=== PATIENT | male | born 1955 | race Caucasian/White ===

== ENCOUNTER 2016-11-09 16:17 | Emergency (ER) | payer BC, OTHER ==
[2016-11-09 16:33] VITALS: BP 144/96
--- NOTE | 2016-11-09 17:24 | RAD ---
Indication: Left medial knee pain. 4 views of left knee demonstrates no fracture. No other bone or joint abnormality is identified. No joint effusion is identified. IMPRESSION: Unremarkable left knee.
--- NOTE | 2016-11-09 17:34 | UC ---
Knee Pain HPI - HPI Summary HPI Summary: twisted left knee on ice 10/31/16 has point tenderness medial lateral knee-is stiff when he gets up no calf pain or tenderness - History of Current Complaint Chief Complaint: UCLowerExtremity Stated Complaint: KNEE INJURY Time Seen by Provider: 11/09/16 16:44 Hx Obtained From: Patient Onset/Duration: Sudden Onset, Lasting Days, Still Present Severity Initially: Moderate Severity Currently: Mild Location Of Injury: medial left knee Pain Intensity: 3 Pain Scale Used: 0-10 Numeric Character: Aching Aggravating Factor(s): Movement Alleviating Factor(s): Rest Associated Signs And Symptoms: Positive: Negative Able to Bear Weight: Yes - Allergies/Home Medications Allergies/Adverse Reactions: Allergies Allergy/AdvReac Type Severity Reaction Status Date / Time No Known Allergies Allergy Verified 11/09/16 16:33 PMH/Surg Hx/FS Hx/Imm Hx Previously Healthy: No Cardiovascular History Of: Reports: Hypertension - Surgical History Surgical History: Yes Surgery Procedure, Year, and Place: RIGHT ROTATOR CUFF SURGERY 2009 - Family History Family History: denies cardiovascular issues in family lineage - Social History Occupation: Employed Part-time Lives: With Family Alcohol Use: Occasionally Substance Use Type: None Smoking Status (MU): Never Smoked Tobacco Review of Systems Constitutional: Negative Skin: Negative Eyes: Negative ENT: Negative Respiratory: Negative Cardiovascular: Palpitations Gastrointestinal: Negative Genitourinary: Negative Motor: Negative Neurovascular: Negative Musculoskeletal: Negative, Arthralgia - left knee Neurological: Negative Psychological: Negative All Other Systems Reviewed And Are Negative: Yes Physical Exam Triage Information Reviewed: Yes Appearance: Well-Appearing, No Pain Distress, Obese Vital Signs: Initial Vital Signs Temp 97.2 F 11/09/16 16:30 Pulse 63 11/09/16 16:30 Resp 18 11/09/16 16:30 BP 144/96 11/09/16 16:30 Pulse Ox 97 11/09/16 16:30 Vital Signs Reviewed: Yes Eye Exam: Normal Eyes: Positive: Conjunctiva Clear ENT Exam: Normal ENT: Positive: Normal ENT inspection, Hearing grossly normal, Pharynx normal. Negative: Nasal congestion, Nasal drainage, Trismus, Muffled/hoarse voice Neck exam: Normal Neck: Positive: Supple, Nontender Respiratory Exam: Normal Respiratory: Positive: No respiratory distress, No accessory muscle use Cardiovascular Exam: Normal Cardiovascular: Positive: RRR, Pulses Normal, Brisk Capillary Refill Musculoskeletal Exam: Normal Musculoskeletal: Positive: Strength Intact, ROM Intact, No Edema Neurological Exam: Normal Neurological: Positive: Alert, Muscle Tone Normal Psychological Exam: Normal Psychological: Positive: Normal Response To Family Skin Exam: Normal Diagnostics - Radiology No standard instances Xray Interpretation: No Acute Changes Radiology Interpretation Completed By: ED Physician, Radiologist Knee Pain Course/Dx - Course Course Of Treatment: cosme, nsaids, rice follow with ortho - Differential Dx/Diagnosis Differential Diagnosis/HQI/PQRI: Fracture (Closed), Internal Derangement Of Knee , Sprain, Strain Provider Diagnoses: Left knee strain Discharge - Discharge Plan Condition: Stable Disposition: HOME Prescriptions: Ibuprofen TAB* [Motrin TAB* 600 MG] 600 mg PO Q6H PRN #30 tab PRN Reason: pain Patient Education Materials: Knee Sprain (ED), Knee Pain (ED), RICE Therapy (ED ) Referrals: Sky Jacinto MD [Medical Doctor] - Narayan Bruner MD [Primary Care Provider] -
== END 2016-11-09 17:46 | disposition home or self-care (01) ==
LOC: UCEAST 16:17
DX: S86.912A Strain of unspecified muscle(s) and tendon(s) at lower leg level, left leg, initial encounter (principal); X50.1XXA Overexertion from prolonged static or awkward postures, initial encounter; Y93.9 Activity, unspecified; Y92.9 Unspecified place or not applicable
CPT/HCPCS: 99212; G0463

== ENCOUNTER → 2017-11-10 05:57 | Day surgery (SDC) | payer BC, OTHER ==
[~2017-11-10 05:57] MED LIST: Atracurium* 10 MG/ML 10 ML VIAL ONE; Buffered Lidocaine 0.9% SYRIN* 5 ML/SYR SYRINGE INTRADERM ONE; Dexamethasone IV* 4 MG/ML 1 ML (4 MG) ONE; DiMENhydriNATE IV* 50 MG/ML VIAL IV PUSH PRN; DiMENhydriNATE IV* 50 MG/ML VIAL ONE; EPINEPHRINE 1 MG/ML 1 ML VIAL ONE; Famotidine IV* 10 MG/ML 2 ML (20 mg) IV ONE; Famotidine IV* 10 MG/ML 2 ML (20 mg) ONE; Glycopyrrolate IV* 0.2 MG/ML 1 ML VIAL ONE; HYDROmorphone INJ* 1 MG/ML CARPUJECT SYRINGE IV PRN; Ketorolac INJ* 30 MG/ML 1 ML VIAL ONE; Midazolam* 1 MG/ML 10 ML VIAL (10 MG) ONE; Naloxone* 0.4 MG/ML 1 ML VIAL IV PRN; Ondansetron INJ* 2 MG/ML VIAL IV PRN; Ondansetron INJ* 2 MG/ML VIAL ONE; Phenylephrine INJ* 10 MG/ML 1 ML VIAL (10 MG) ONE; Propofol* 10 MG/ML 20 ML BTL IV PUSH ONE; ROPIVACAINE 5 MG/ML 30 ML BTL (0.5%) ONE; ceFAZolin 2 GM PREMIX (*) 2 GM/50 ML BAG IVPB ONE; fentaNYL* 50 MCG/ML 2 ML VIAL (100 MCG VIAL) IV PRN; fentaNYL* 50 MCG/ML 2 ML VIAL (100 MCG VIAL) ONE; oxyCODONE/Acetamin 5/325 MG* TAB PO PRN
[2017-11-10] MEDS: Dexamethasone IV* 4 MG/ML 1 ML (4 MG) IV SLOW PU ONE ×2 (06:46→06:47)
[2017-11-10 13:51] VITALS: BP 118/73
--- NOTE | 2017-11-16 02:57 | OP ---
DATE OF OPERATION: 11/10/17 - [facility] DATE OF : 55 SURGEON: Michael Moss MD LEAD MILITARY ANALYST: GENIA Jara. A physician printer assistant was required for the length of the procedure for positioning, assistance with instrumentation, closure. ANESTHESIOLOGIST: Dr. Camden Gunn. ANESTHESIA: General anesthesia, interscalene block regional anesthesia. PRE-OP DIAGNOSES: 1. Right shoulder recurrent rotator cuff tendon tear, supraspinatus. 2. Possible right shoulder subscapularis and/or infraspinatus rotator cuff tendon tears. 3. Right shoulder AC joint arthritis. 4. Right shoulder subacromial impingement. 5. Possible right shoulder biceps tendinosis. POST-OP DIAGNOSES: 1. Right shoulder recurrent rotator cuff tendon tear, supraspinatus. 2. Right shoulder subscapularis and infraspinatus rotator cuff tendon tears. 3. Right shoulder supraspinatus and infraspinatus tears had an L-shape. 4. Right shoulder AC joint arthritis. 5. Right shoulder subacromial impingement. 6. Prior spontaneous rupture, right shoulder biceps tendon, long head, proximal , with a long persistent biceps stump proximally. OPERATIVE PROCEDURE: 1. Right shoulder arthroscopic subscapularis rotator cuff tendon repair. 2. Right shoulder arthroscopic rotator cuff repairs, supraspinatus, infraspinatus, L-shaped, with double row repair. 3. Right shoulder arthroscopic distal clavicle resection. 4. Right shoulder arthroscopic subacromial decompression. 5. Right shoulder arthroscopic limited debridement including of proximal biceps long head stump, rotator interval tissue as well. 6. Modifier 22 for complexity of procedure. This patient has a BMI of 40.2. This was a revision surgery of a prior rotator cuff repair done in 2009. It was a massive rotator cuff repair, including repair of the subscapularis, supraspinatus, and infraspinatus with 4 anchors as well as 2 [id number] stitches. ANTIBIOTICS: Ancef 2 g IV. IV FLUIDS: 1800 cc crystalloid. COMPLICATIONS: None. SPECIMENS: None. ESTIMATED BLOOD LOSS: Minimal. IMPLANTS: Mitek Colby and Colby Gryphon anchors. A 4.5-mm double loaded anchor for the subscapularis. Two anchors, 5.5-mm and triple loaded for the medial row of the supra and infraspinatus repair. A 5.5-mm knotless anchor for the lateral row. Two Orthocord #2 sutures for 2 [id number] stitches. 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 Sun in 2009, who injured himself in March of 2017. I diagnosed him with a rotator cuff tear. He opted not to have surgery immediately. He then injured himself again in July 2017 and now is interested in surgery. See history and physical for full details. MRI showed acromiohumeral distance as high as 7 mm. MRI showed fatty infiltration of the supraspinatus of approximately 50%. Significant fatty infiltration of the subscapularis, practically complete. While radiologist did not note a tear in the subscapularis, I thought there was at least partial- thickness tearing in it. As well as I believe that the tear propagated into the infraspinatus. I did not see biceps tendon in multiple axial slices preoperative, so I was not surprised by the rupture found intraoperatively. The patient and I preoperatively discussed risks and potential complications of surgery including bleeding, infection, nerve or blood vessel injury, blood clot , shoulder pain, stiffness, osteoarthritis, inability to repair rotator cuff, rotator cuff rerupture. DESCRIPTION OF PROCEDURE: Preoperatively, the patient signed a written consent. Operative extremity was marked in preoperative holding. The patient underwent an interscalene regional nerve block by Dr. Gunn. The patient went back to the operating room and placed supine on the operating room table. The patient was sedated and intubated. The patient was transitioned into the lateral decubitus position with the right shoulder up. All bony prominences padded. Axillary role placed. Vega bag hardened. Shoulder placed in longitudinal traction, in the appropriate amount of forward flexion and abduction of that right shoulder. Right shoulder had been shaved previously of hair. Prepped with ChloraPrep and draped. Surgical time-out performed. The right glenohumeral joint was entered from posterior with a spinal needle and 30 cc of normal saline were infused. I then established a posterior glenohumeral joint portal using standard technique. A diagnostic arthroscopy was commenced. No loose bodies in the axillary recess. Large superior rotator tuff tear with retraction clearly visible as the subacromial space was very visible. I looked to the subscapularis. It was partially if not completely pulled off the proximal humerus with some retraction. At this point, I decided I would be doing a subscapularis repair, arthroscopic. I made an anterosuperior rotator cuff portal under direct visualization. First I inspected the biceps tendon which I should state earlier, on my diagnostic arthroscopy, was shown to be ruptured. There was a long stump of biceps attached to the superior labrum. Using an arthroscopic shaver, I debrided that stump back to the superior labrum and debrided likely some frayed superior labral tissue. I freed up the subscapularis. I did so using arthroscopic shaver and switching stick to loosen it up from adhesions. With the grasper, I was able to demonstrate to myself that it was repairable to bone. I debrided the subscapularis rotator cuff footprint with an arthroscopic bur. I established an anteroinferior arthroscopic glenohumeral joint portal. Prior to doing so, I had placed a 7-mm Arthrex plastic cannula into the anterosuperior portal. After creating the anteroinferior portal, I next placed a suture anchor through this row of portal. Specifically, a double loaded 4.5 mm Mitek Gryphon anchor. Sutures were removed through the anterosuperior portal. I used an ideal suture passer from Mitek to place 2 horizontal mattress stitches in the subscapularis tendon. I tied this down and the subscapularis tendon was brought nicely to bone. I probed my repair on both the humerus and I liked my repair. I had also done some debridement of the rotator interval, of course, prior to doing that repair. I next removed my portals and replaced them into the subacromial space. I entered from posterior and anterior. There was some momentary difficulty getting in anterior because of the coracoacromial ligament, but eventually established posterior and anterior subacromial portals. I created lateral subacromial portal under direct visualization. A large rotator cuff tear was clearly noticeable. I debrided bursitic tissue in the gutters with an arthroscopic shaver. I debrided the undersurface of the acromion with a vapor electrocautery. I established posterolateral subacromial portal for improved visualization. I probed and grasped the repair to try to define its anatomy. Two sutures were visible in the supraspinatus, present far medial. I explored the tear and found it to be L-shaped. The vertical limb of the L was present close to the anterior most supraspinatus. The transverse limb then moved posterior along the footprint. There was a tiny slither of a good quality supraspinatus tissue still intact most anteriorly. After defining the tear geometry, I moved forward to my repair. I placed 2 suture anchors in the medial aspect of the rotator cuff footprint after preparing that footprint with a vapor and arthroscopic bur. Each anchor was 5.5 -mm and triple loaded. One was more anterior and one was more posterior. I placed both anchors through superolateral stab incisions. I next placed horizontal mattress stitches in the supraspinatus and infraspinatus using a Arriaga and [employer] suture passer. I partially tied as I went. I liked how the rotator cuff came to bone nicely and was confident that I defined well the L- shaped configuration of this tear. I placed 3 stitches with my anterior anchor and 3 stitches with my posterior anchor. Given the size of the tear, I have decided to place a lateral row anchor. I took 4 sutures from the medical row and placed them in a knotless 5.5-mm suture anchor laterally. Care was very stable to arthroscopic probing and to movement of the humerus. There was still the longitudinal or vertical rim of the L which I wanted to close down even though the supraspinatus on either side of that rim was well opposed. I placed 2 [id number]-jh-[id number] stitches using a Copybar Jasper suture passer. Repair seemed robust. There was clearly an inferior hook to the anterior aspect of the acromion. I normally do the arthroscopic decompression prior to my rotator cuff repair, but I did it after the repair in this case. I debrided approximately 8-mm or more of this hook and smoothed it out nicely. I next proceeded to the AC joint. There was significant synovitic, bursitic tissue about that joint, which I debrided with a vapor. I then debrided 8-mm at the end of the distal clavicle using arthroscopic bur. Fluid and instruments were removed from the shoulder. Skin incisions were closed with [id number] and twelve stitches using nylon 4.0 suture. Xeroform, 4x4, ABDs, foam tape. Sling and abduction pillow. The patient was extubated and awakened and brought to the PACU. DISPOSITION: The patient was to start physical therapy the following week. The patient was prescribed Percocet as needed for pain control, Keflex x7 days for infection prophylaxis and aspirin for DVT prophylaxis. The patient will follow up with me in clinic in 10 to 14 days. [id number]/CPS #: [id number] MTDD
== END | disposition home or self-care (01) ==
LOC: OR 05:57
PROVIDERS: ATTEND Orthopaedic Surgery
DX: S46.011A Strain of muscle(s) and tendon(s) of the rotator cuff of right shoulder, initial encounter (principal); M19.011 Primary osteoarthritis, right shoulder; M75.41 Impingement syndrome of right shoulder; M66.811 Spontaneous rupture of other tendons, right shoulder; I10 Essential (primary) hypertension; K21.9 Gastro-esophageal reflux disease without esophagitis; E78.00 Pure hypercholesterolemia, unspecified; W17.2XXA Fall into hole, initial encounter; Y93.01 Activity, walking, marching and hiking; Y92.828 Other wilderness area as the place of occurrence of the external cause; G89.18 Other acute postprocedural pain
CPT/HCPCS: J0690; J1100; J1240; J1885; J2250; J2405; J2704; J2795; J3010

== ENCOUNTER 2019-10-23 13:31 | Emergency (ER) | payer BC, OTHER ==
[2019-10-23 13:53] LABS: ABS Basophils 0.1 10^3/ul (0-0.2); ABS Eosinophils 0.1 10^3/ul (0-0.6); ABS Lymphocytes 1.4 10^3/ul (1.0-4.8); ABS Monocytes 0.5 10^3/ul (0-0.8); ABS Neutrophils 3.1 10^3/ul (1.5-7.7); Eosinophil % 1.3 %; Hematocrit 47 % (42-52); Hemoglobin 15.9 g/dL (14.0-18.0); Lymphocyte % 26.6 %; Mean Corpuscular HGB Conc 34 g/dL (31-36); Mean Corpuscular Hemoglobin 31 pg (27-31); Mean Corpuscular Volume 92 fL (80-94); Mean Platelet Volume 9.5 fL (7.4-10.4); Nucleated Red Blood Cells % 0.1; Platelet Count 182 10^3/uL (150-450); Red Blood Count 5.08 10^6 /uL (4.18-5.48); Red Cell Distribution Width 14 % (10-15); White Blood Count 5.2 10^3/uL (3.5-10.8)
[2019-10-23 13:59] LABS: INR 0.98 (0.82-1.09)
[2019-10-23 14:10] LABS: Albumin 4.1 g/dL (3.2-5.2); Albumin/Globulin Ratio 1.4 (1-3); BUN/Creatinine Ratio 19.1 (8-20); Calcium 9.5 mg/dL (8.6-10.3); EGFR African American 77.5 (>60); Globulin 2.9 g/dL (2-4); Potassium 4.4 mmol/L (3.5-5.0); Total Bilirubin 0.6 mg/dL (0.2-1.0)
[2019-10-23] MEDS ORDERED: Pantoprazole IV* 40 MG IV ONE (14:15)
[2019-10-23] MEDS ORDERED: Sucralfate TAB* 1 GM PO ONE (14:15)
--- NOTE | 2019-10-23 14:16 | ED ---
HPI Chest Pain - HPI Summary HPI Summary: This patient is a 64 year old M presenting to [facility] accompanied by with a chief complaint of chest pain since 0 today. Pt describes it as heaviness on his chest. Pt was fine when he went to sleep. On 10/18/19, pt had a stabbing pain when going to [place] but felt fine the night of the . On 10/19/19 and he felt a heaviness on his chest. Pt felt fine later in the day after driving back to [place]. Pt has PMHx of acid reflux, and his prescription changed to Zantac last year. They had a recall on Zantac so pt stopped taking the prescription. Pt had medication this morning for acid reflux but it did not relieve the pain. Per triage, the patient rates the pain 3/10 in severity. Symptoms aggravated by position (laying down). Symptoms alleviated by eating. Patient reports nausea. Patient denies SOB, diaphoresis. Pt has PMHx of HTN. Pt has no FHx. - History of Current Complaint Chief Complaint: EDChestPainROMI Time Seen by Provider: 10/23/19 13:35 Hx Obtained From: Patient Onset/Duration: Started Hours Ago Time of Onset: 04:00 Timing: Constant Initial Severity: Mild Current Severity: Mild Pain Intensity: 3 Pain Scale Used: 0-10 Numeric Chest Pain Location: Diffuse Chest Pain Radiates: Yes Chest Pain Radiates To:: Epigastric Character: Heaviness Aggravating Factor(s): Position Alleviating Factor(s): Other: - Food Associated Signs and Symptoms: Positive: Chest Pain, Nausea. Negative: Shortness of Breath, Diaphoresis - Allergy/Home Medications Allergies/Adverse Reactions: Allergies Allergy/AdvReac Type Severity Reaction Status Date / Time No Known Allergies Allergy Verified 10/23/19 13:36 PMH/Surg Hx/FS Hx/Imm Hx Endocrine/Hematology History: Denies: Hx Diabetes Cardiovascular History: Reports: Hx Hypertension Denies: Hx Pacemaker/ICD Respiratory History: Reports: Hx Sleep Apnea Denies: Hx Pulmonary Embolism GI History: Reports: Hx Gastroesophageal Reflux Disease - ON MEDICATION FOR History: Denies: Hx Renal Disease Sensory History: Denies: Hx Contacts or Glasses, Hx Hearing Aid Opthamlomology History: Denies: Hx Contacts or Glasses Psychiatric History: Denies: Hx Panic Disorder - Surgical History Surgery Procedure, Year, and Place: RIGHT ROTATOR CUFF SURGERY 2009. UMBILICAL HERNIA AGE 2 Hx Anesthesia Reactions: No Infectious Disease History: No Infectious Disease History: Denies: Traveled Outside the [place] in Last 30 Days - Family History Known Family History: Negative: Cardiac Disease Family History: denies cardiovascular issues in family lineage - Social History Lives: With Family Alcohol Use: Occasionally Hx Substance Use: No Substance Use Type: Reports: None Hx Tobacco Use: No Smoking Status (MU): Never Smoked Tobacco Review of Systems Negative: Skin Diaphoresis Positive: Chest Pain Negative: Shortness Of Breath Positive: Nausea All Other Systems Reviewed And Are Negative: Yes Physical Exam - Summary Physical Exam Summary: Appearance: The patient is well-nourished in no acute distress and in no acute pain. Skin: The skin is warm and dry, and skin color reflects adequate perfusion. HEENT: The head is normocephalic and atraumatic. The pupils are equal and reactive. The conjunctivae are clear and without drainage. Nares are patent and without drainage. Mouth reveals moist mucous membranes, and the throat is without erythema and exudate. The external ears are intact. The ear canals are patent and without drainage. The tympanic membranes are intact. Neck: The neck is supple with full range of motion and non-tender. There are no carotid bruits. There is no neck vein distension. Respiratory: Chest is non-tender. Lungs are clear to auscultation and breath sounds are symmetrical and equal. Cardiovascular: Heart is regular rate and rhythm. There is no murmur or rub auscultated. There is no peripheral edema and pulses are symmetrical and equal. Abdomen: The abdomen is soft. There are normal bowel sounds heard in all four quadrants and there is no organomegaly palpated. Mild epigastric tenderness. Musculoskeletal: There is no back tenderness noted. Extremities are non-tender with full range of motion. There is good capillary refill. There is no peripheral edema or calf tenderness elicited. Neurological: Patient is alert and oriented to person, place and time. The patient has symmetrical motor strength in all four extremities. Cranial nerves are grossly intact. Deep tendon reflexes are symmetrical and equal in all four extremities. Psychiatric: The patient has an appropriate affect and does not exhibit any anxiety or depression. Triage Information Reviewed: Yes Vital Signs On Initial Exam: Initial Vitals Temp Pulse Resp BP Pulse Ox 98.9 F 74 18 143/89 99 10/23/19 13:34 10/23/19 13:34 10/23/19 13:34 10/23/19 13:34 10/23/19 13:34 Vital Signs Reviewed: Yes Procedures - Sedation Patient Received Moderate/Deep Sedation with Procedure: No Diagnostics - Vital Signs Vital Signs Temp Pulse Resp BP Pulse Ox 10/23/19 13:34 98.9 F 74 18 143/89 99 - Laboratory Lab Results: Lab Results 10/23/19 10/23/19 10/23/19 Range/Units 13:47 13:47 13:47 WBC 5.2 (3.5-10.8) 10^3/uL RBC 5.08 (4.18-5.48) 10^6 /uL Hgb 15.9 (14.0-18.0) g/dL Hct 47 (42-52) % MCV 92 (80-94) fL MCH 31 (27-31) pg MCHC 34 (31-36) g/dL RDW 14 (10-15) % Plt Count 182 (150-450) 10^3/uL MPV 9.5 (7.4-10.4) fL Neut % (Auto) 60.5 % Lymph % (Auto) 26.6 % [place] % (Auto) 10.5 % Eos % (Auto) 1.3 % Baso % (Auto) 1.1 % Absolute Neuts (auto) 3.1 (1.5-7.7) 10^3/ul Absolute Lymphs (auto) 1.4 (1.0-4.8) 10^3/ul Absolute Monos (auto) 0.5 (0-0.8) 10^3/ul Absolute Eos (auto) 0.1 (0-0.6) 10^3/ul Absolute Basos (auto) 0.1 (0-0.2) 10^3/ul Absolute Nucleated RBC 0.0 10^3/ul Nucleated RBC % 0.1 INR (Anticoag Therapy) 0.98 (0.82-1.09) Sodium 140 (135-145) mmol/L Potassium 4.4 (3.5-5.0) mmol/L Chloride 109 (101-111) mmol/L Carbon Dioxide 27 (22-32) mmol/L Anion Gap 4 (2-11) mmol/L BUN 22 (6-24) mg/dL Creatinine 1.15 (0.67-1.17) mg/dL Est GFR ( Amer) 77.5 (>60) Est GFR (Non-Af Amer) 64.0 (>60) BUN/Creatinine Ratio 19.1 (8-20) Glucose 107 H (70-100) mg/dL Calcium 9.5 (8.6-10.3) mg/dL Total Bilirubin 0.60 (0.2-1.0) mg/dL AST 21 (13-39) U/L ALT 20 (7-52) U/L Alkaline Phosphatase 87 (34-104) U/L Troponin I 0.00 (<0.03) ng/mL Total Protein 7.0 (6.4-8.9) g/dL Albumin 4.1 (3.2-5.2) g/dL Globulin 2.9 (2-4) g/dL Albumin/Globulin Ratio 1.4 (1-3) Result Diagrams: 10/23/19 13:47 10/23/19 13:47 Lab Statement: Any lab studies that have been ordered have been reviewed, and results considered in the medical decision making process. - EKG 1335 Cardiac Rate: NL EKG Rhythm: Sinus Rhythm Summary of EKG Findings: EKG at 1335 reveals Normal sinus rhythm 69 bpm, PVC. This EKG was reviewed and interpreted by ED physician Re-Evaluation - Re-Evaluation First Eval Re-Evaluation Time: 15:05 Comment: Discussed results and plan of care with pt. Chest Pain Course/Dx - Course Course Of Treatment: Mr. Bowen presented with some chest discomfort. He has a long history of GERD. On presentation his vitals are stable and he was nontoxic in appearance. His EKG was unchanged from previous. Labs including a delayed troponin were unremarkable. His symptomatology disappeared with IV Protonix and sucralfate. His heart score is 3. This likely represents a GI etiology and much less likely a cardiac etiology. I recommended follow-up with his PCP. - Diagnoses Provider Diagnoses: Chest pain Discharge ED - Sign-Out/Discharge Documenting (check all that apply): Patient Departure - Discharge - Discharge Plan Condition: Stable Disposition: HOME Patient Education Materials: Chest Pain (ED) Referrals: Narayan Bruner MD [Primary Care Provider] - 3 Days Additional Instructions: Follow up with primary care provider within 2-3 days. Return to ED for any new or worsening symptoms. - Billing Disposition and Condition Condition: STABLE Disposition: Home - Attestation Statements Document Initiated by Malena: Yes Documenting Scribe: Laura Haas Provider For Whom Malena is Documenting (Include Credential): Adalid Marie MD Scribe Attestation: Laura Peck, scribed for Adalid Marie MD on 10/23/19 at 1826. Scribe Documentation Reviewed: Yes Provider Attestation: The documentation as recorded by the Laura fountain accurately reflects the service I personally performed and the decisions made by me, Adalid Marie MD Status of Scribe Document: Viewed
[2019-10-23 17:54] VITALS: BP 138/97
== END 2019-10-23 17:54 | disposition home or self-care (01) ==
LOC: ED 13:31
DX: R07.9 Chest pain, unspecified (principal); I10 Essential (primary) hypertension; K21.9 Gastro-esophageal reflux disease without esophagitis; Z79.899 Other long term (current) drug therapy
CPT/HCPCS: 36415; 80053; 83690; 84484; 85025; 85610; 93005; 96374; 99284; A9270-GY

== ENCOUNTER 2021-11-23 13:57 | Observation (INO) ==
[2021-11-23 14:30] LABS: ABS Eosinophils 0.1 10^3/ul (0-0.6); ABS Lymphocytes 1.4 10^3/ul (1.0-4.8); ABS Monocytes 0.5 10^3/ul (0-0.8); ABS Neutrophils 3.4 10^3/ul (1.5-7.7); Eosinophil % 1.2 %; Hematocrit 45 % (42-52); Hemoglobin 15.2 g/dL (14.0-18.0); Lymphocyte % 25.2 %; Mean Corpuscular HGB Conc 34 g/dL (31-36); Mean Corpuscular Hemoglobin 31 pg (27-31); Mean Corpuscular Volume 91 fL (80-94); Mean Platelet Volume 9.6 fL (7.4-10.4); Nucleated Red Blood Cells % 0.1; Platelet Count 189 10^3/uL (150-450); Red Blood Count 4.96 10^6 /uL (4.18-5.48); Red Cell Distribution Width 14 % (10-15); White Blood Count 5.4 10^3/uL (3.5-10.8)
[2021-11-23 14:39] LABS: INR 1.09 (0.86-1.15)
[2021-11-23 14:47] LABS: Albumin 4.1 g/dL (3.2-5.2); Albumin/Globulin Ratio 1.5 (1-3); Calcium 9.2 mg/dL (8.6-10.3); Globulin 2.7 g/dL (2-4); Potassium 4.2 mmol/L (3.5-5.0); Total Bilirubin 0.7 mg/dL (0.2-1.0); Total Protein 6.8 g/dL (6.4-8.9); eGFR CKD-EPI 63.5 (>60)
[2021-11-23 14:49] LABS: Troponin I 0.01 ng/mL (<0.03)
[2021-11-23] MEDS ORDERED: Al Hydrox/Mg Hydrox/Simet LIQ 30 ML UDC PO ONE (15:42)
[2021-11-23 17:46] LABS: Troponin I 0.03 ng/mL (<0.03)
[2021-11-23] MEDS ORDERED: Al Hydrox/Mg Hydrox/Simet LIQ 30 ML UDC PO PRN (20:27)
[2021-11-23 21:07] LABS: Troponin I 0.03 ng/mL (<0.03)
[2021-11-24 03:22] LABS: Hematocrit 43 % (42-52); Hemoglobin 14.7 g/dL (14.0-18.0); Mean Corpuscular HGB Conc 34 g/dL (31-36); Mean Corpuscular Hemoglobin 31 pg (27-31); Mean Corpuscular Volume 91 fL (80-94); Mean Platelet Volume 9.2 fL (7.4-10.4); Platelet Count 169 10^3/uL (150-450); Red Blood Count 4.78 10^6 /uL (4.18-5.48); Red Cell Distribution Width 14 % (10-15)
[2021-11-24 03:39] LABS: Magnesium 2.2 mg/dL (1.9-2.7); Potassium 4.5 mmol/L (3.5-5.0); eGFR CKD-EPI 68.8 (>60)
[2021-11-24] MEDS ORDERED: Albuterol HFA INHALER 8 gm MDI INH PRN (04:51)
[2021-11-24] MEDS ORDERED: Calcium Carb (TUMS) 500 mg CHEW TAB PO PRN (04:51)
[2021-11-24] MEDS ORDERED: Coenzyme Q10 CAP (NF) 100MG PO SCH (09:00)
[2021-11-24 11:08] VITALS: BP 120/80
[2021-11-24] MEDS ORDERED: CMCS: Epleronone 25 mg TAB (NF) PO SCH (21:00)
== END 2021-11-24 16:50 | disposition home or self-care (01) ==
LOC: EDHOLD 13:57 → ED 13:57 → SUATTDRO 20:20 → MED 22:37
PROVIDERS: ADMIT Student in an Organized Health Care Education/Training Program; ATTEND Internal Medicine

== ENCOUNTER 2022-09-18 06:48 | Observation (INO) ==
[2022-09-18 07:12] LABS: ABS Eosinophils 0.1 10^3/ul (0-0.6); ABS Lymphocytes 1.1 10^3/ul (1.0-4.8); ABS Monocytes 0.5 10^3/ul (0-0.8); ABS Neutrophils 2.4 10^3/ul (1.5-7.7); Eosinophil % 2.3 %; Hematocrit 44 % (42-52); Hemoglobin 14.4 g/dL (14.0-18.0); Lymphocyte % 26.9 %; Mean Corpuscular HGB Conc 33 g/dL (31-36); Mean Corpuscular Hemoglobin 31 pg (27-31); Mean Corpuscular Volume 92 fL (80-94); Mean Platelet Volume 9.4 fL (7.4-10.4); Nucleated Red Blood Cells % 0.1; Platelet Count 162 10^3/uL (150-450); Red Blood Count 4.74 10^6 /uL (4.18-5.48); Red Cell Distribution Width 14 % (10-15); White Blood Count 4.2 10^3/uL (3.5-10.8)
[2022-09-18 07:17] LABS: INR 1.02 (0.89-1.11)
[2022-09-18 07:59] LABS: Albumin 4.2 g/dL (3.2-5.2); Albumin/Globulin Ratio 1.8 (1-3); Globulin 2.3 g/dL (2-4); Potassium 4.4 mmol/L (3.5-5.0); Total Bilirubin 1.1 mg/dL (0.2-1.0); Total Protein 6.5 g/dL (6.4-8.9); eGFR CKD-EPI 79.2 (>60)
[2022-09-18 08:42] LABS: Magnesium 2.2 mg/dL (1.9-2.7)
[2022-09-18 08:46] LABS: High Sensitivity Troponin 1 Hr 12 pg/mL (<20)
[2022-09-18] MEDS ORDERED: Ondansetron 4 mg VIAL 2 MG/ML 2 ml VIAL IV PRN (10:16)
[2022-09-18] MEDS ORDERED: Albuterol HFA INHALER 8 gm MDI INH PRN (10:21)
[2022-09-18] MEDS: Enoxaparin 40 MG/0.4 ML SYR SUBCUT SCH (17:22)
[2022-09-18] MEDS ORDERED: CMC:Epleronone 25 mg TAB (NF) PO SCH (21:00)
[2022-09-19 07:30] LABS: ABS Eosinophils 0.1 10^3/ul (0-0.6); ABS Lymphocytes 1.3 10^3/ul (1.0-4.8); ABS Monocytes 0.5 10^3/ul (0-0.8); ABS Neutrophils 2.4 10^3/ul (1.5-7.7); Eosinophil % 3.1 %; Hematocrit 43 % (42-52); Hemoglobin 14.3 g/dL (14.0-18.0); Lymphocyte % 29.1 %; Mean Corpuscular HGB Conc 33 g/dL (31-36); Mean Corpuscular Hemoglobin 30 pg (27-31); Mean Corpuscular Volume 92 fL (80-94); Platelet Count 153 10^3/uL (150-450); Red Cell Distribution Width 14 % (10-15); White Blood Count 4.3 10^3/uL (3.5-10.8)
[2022-09-19 07:42] LABS: Calcium 8.7 mg/dL (8.6-10.3); HDL Cholesterol 40.8 mg/dL; Magnesium 2.2 mg/dL (1.9-2.7); Potassium 4.8 mmol/L (3.5-5.0); eGFR CKD-EPI 70.9 (>60)
[2022-09-19] MEDS ORDERED: Metoprolol Tartrate 5 mg VIAL 5 ml VIAL (1 mg/ml) ONE (07:46)
[2022-09-19] MEDS ORDERED: DOBUTamine 2000 MCG/ML IVPREMX 500 MG/250 ML BAG IV ONE (07:46)
[2022-09-19] MEDS ORDERED: Perflutren Lipid Microsphere 3 ML VIAL ONE (08:03)
[2022-09-19] MEDS ORDERED: Aspirin EC 81 mg TAB.EC (enteric coated) PO SCH (09:00)
[2022-09-19 11:33] VITALS: BP 120/80
[2022-09-19] MEDS: Enoxaparin 40 MG/0.4 ML SYR SUBCUT SCH (12:55)
== END 2022-09-19 13:00 | disposition home or self-care (01) ==
LOC: ED 06:48 → EDHOLD 06:48 → MEDTELE 17:06 → SSU 17:18
PROVIDERS: ADMIT Internal Medicine; ATTEND Internal Medicine